=== PATIENT | female | born 1950 | race Caucasian/White ===

== ENCOUNTER 2017-08-07 07:21 | Emergency (ER) | payer OTHER ==
--- NOTE | 2017-08-07 07:47 | EDPHY ---
H & P Time Seen by Provider: 08/07/17 07:26 HPI/ROS: Chief complaint. Neck and back pain HPI. 67-year-old female here by EMS with back pain. Patient tells me that during the night she suddenly had neck and upper back pain that radiates to her right scapula and down her right arm. She noticed she was somewhat tachycardic. Her pain is worse with movement and trying to stand. [place] doing EMS training in the last couple days and feels she over did it. She has cervical stenosis. She had a spinal fusion L2-L5 1 year ago and has had some achiness this area for 1 month. However the pain in her neck and upper back pain since last night. It felt like basilar. No anterior chest discomfort or shortness of breath. No bowel or bladder symptoms did she has some residual paresthesias but no new weakness or paresthesias. No fever abdominal pain. She received fentanyl per EMS. She took tramadol and prednisone during night. ROS Constitutional. no fever/chills, no weakness Eyes. no problems with vision ENT. no sore throat, no nasal drainage Cardiovascular. no chest pain Respiratory. no shortness of breath, no cough Abdominal. no abdominal pain, no nausea/vomiting, no diarrhea . no problems urinating MS. Neck and upper right-sided back pain. Radiation down right arm Skin. no rash Lymph. no swollen glands Neuro. Could not stand or walk secondary to pain Past Medical/Surgical History: Medical history significant for hypertension, dental Bridgett, skull stenosis, hip replacement, IBS Social History: , nonsmoker, no alcohol Smoking Status: Former smoker Physical Exam: General Appearance: A well-developed female moderate distress vital signs are stable Eyes: Pupils equal and round no pallor or injection. ENT, Mouth: Mucous membranes are moist. Respiratory: There are no retractions, lungs are clear to auscultation. Cardiovascular: Regular rate and rhythm. Gastrointestinal: Abdomen is soft and nontender, no masses, bowel sounds normal. Neurological: Awake and alert, sensory and motor exams grossly normal. Speech is normal. Arms and legs appear normal. Reflexes are normal Skin: Warm and dry, no rashes. Musculoskeletal: Neck is supple but tender over the cervical spine and to the right scapular area. Extremities symmetrical, full range of motion. Psychiatric: Patient is oriented X 3, there is no agitation. Constitutional: Initial Vital Signs Temperature (C) 36.7 C 08/07/17 07:21 Heart Rate 71 08/07/17 07:21 Respiratory Rate 20 08/07/17 07:21 Blood Pressure 150/97 H 08/07/17 07:21 O2 Sat (%) 98 08/07/17 07:21 O2 Delivery Mode Room Air Allergies/Adverse Reactions: Sulfa (Sulfonamide Antibiotics) Allergy (Verified 08/07/17 07:35) Home Medications: Medication Instructions Recorded Lisinopril 08/07/17 Meloxicam 08/07/17 methylPREDNISolone [Medrol Dose 1 each PO AD #1 ea 08/07/17 Bernardo] traMADol 08/07/17 Medical Decision Making - Diagnostics EKG Interpretation: EKG interpreted by me shows normal sinus rhythm with normal interval axis. QRS is normal there is no significant ST elevation or depression. No arrhythmia. Rate 71 Imaging Results: Imaging Impressions Cervical Spine MRI 08/07/17 08:03 Impression: Altered level spondylosis superimposed upon a congenitally small cervical neural canal with multilevel central and foraminal stenosis described above. The worst central canal stenosis is at C5-C6. If there is concern for instability, then lateral cervical flexion and extension plain film x-rays might be considered. Results called to Dr. Giselle Grover. Chest X-Ray 08/07/17 08:03 Impression: Negative. Thoracic Spine MRI 08/07/17 08:03 Impression: Multilevel spondylosis with several levels of mild cord compression. There is bilateral T1-T2 severe foraminal stenosis. Results called and discussed with GISELLE GROVER, at 08/07/2017 10:25 Chest x-ray reviewed by me is negative. Cervical and thoracic MRI reviewed by me and discussed with Dr. Rhodes with the above findings CT angiogram chest negative for pulmonary embolus. Procedures: IV normal saline. Morphine for pain. Ativan for muscle relaxation ED Course/Re-evaluation: Patient has an elevated D-dimer. CT angiogram is ordered. IV normal saline 1 L given On re-evaluation patient's symptoms are much improved. She no longer has any radiculopathy. No weakness to either arm. I consulted and discussed case with Dr. Marcos Rehman, neurosurgery who reviewed the cervical and thoracic MRI. He will see her in the office on Wednesday. He agrees with Medrol Dosepak. The patient, her , and I discussed imaging and lab results. We discussed treatment plan including criteria for return importance of follow-up and further evaluation. She expresses understanding and agreement. Patient is counseled regarding the increased risk of spinal cord injury with minor trauma such as fall or motor vehicle accident. She expresses understanding Differential Diagnosis: This is likely cervical radiculopathy. I considered pulmonary embolus, acute coronary syndrome, cord compression - Data Points Laboratory Results: Laboratory Results 08/07/17 07:48 08/07/17 07:48 08/07/17 08/07/17 08/07/17 07:48 07:48 07:48 WBC 7.64 10^3/uL 10^3/uL (3.80-9.50) RBC 4.41 10^6/uL 10^6/uL (4.18-5.33) Hgb 13.8 g/dL g/dL (12.6-16.3) Hct 39.5 % % (38.0-47.0) MCV 89.6 fL fL (81.5-99.8) MCH 31.3 pg pg (27.9-34.1) MCHC 34.9 g/dL g/dL (32.4-36.7) RDW 13.5 % % (11.5-15.2) Plt Count 313 10^3/uL 10^3/uL (150-400) MPV 9.4 fL fL (8.7-11.7) Neut % (Auto) 63.5 % % (39.3-74.2) Lymph % (Auto) 28.1 % % (15.0-45.0) [place] % (Auto) 7.3 % % (4.5-13.0) Eos % (Auto) 0.8 % % (0.6-7.6) Baso % (Auto) 0.3 % % (0.3-1.7) Nucleat RBC Rel Count 0.0 % % (0.0-0.2) Absolute Neuts (auto) 4.85 10^3/uL 10^3/uL (1.70-6.50) Absolute Lymphs (auto) 2.15 10^3/uL 10^3/uL (1.00-3.00) Absolute Monos (auto) 0.56 10^3/uL 10^3/uL (0.30-0.80) Absolute Eos (auto) 0.06 10^3/uL 10^3/uL (0.03-0.40) Absolute Basos (auto) 0.02 10^3/uL 10^3/uL (0.02-0.10) Absolute Nucleated RBC 0.00 10^3/uL 10^3/uL (0-0.01) Immature Gran % 0.0 % % (0.0-1.1) Immature Gran # 0.00 10^3/uL 10^3/uL (0.00-0.10) D-Dimer 1.28 ug/mLFEU H ug/mLFEU (0.00-0.50) Sodium 141 mEq/L mEq/L (134-144) Potassium 4.1 mEq/L mEq/L (3.5-5.2) Chloride 107 mEq/L mEq/L (97-110) Carbon Dioxide 23 mEq/l mEq/l (22-31) Anion Gap 11 mEq/L mEq/L (8-16) BUN 28 mg/dL H mg/dL (7-23) Creatinine 1.1 mg/dL H mg/dL (0.6-1.0) Estimated GFR 49 Glucose 90 mg/dL mg/dL (70-100) Calcium 10.1 mg/dL mg/dL (8.5-10.4) Troponin I < 0.012 ng/mL ng/mL (0.000-0.034) Medications Given: Discontinued Medications Sodium Chloride (Ns) 1,000 mls @ 0 mls/hr IV EDNOW ONE; Wide Open PRN Reason: Protocol Stop: 08/07/17 08:03 Last Admin: 08/07/17 08:13 Dose: 1,000 mls Lorazepam (Ativan Injection) 1 mg IVP EDNOW ONE Stop: 08/07/17 08:05 Last Admin: 08/07/17 08:13 Dose: 1 mg Morphine Sulfate (Morphine) 6 mg IVP EDNOW ONE Stop: 08/07/17 08:05 Last Admin: 08/07/17 08:13 Dose: 6 mg Departure - Departure Disposition: Home, Routine, Self-Care Clinical Impression: Cervical radiculopathy Condition: Good Instructions: Cervical Radiculopathy (ED) Additional Instructions: Prednisone taper to help decrease inflammation in the spinal cord of your neck. Tramadol for pain. As we talked about falls or motor vehicle accident or minor trauma with [place] at increased risk for spinal cord injuries. Return for worsening symptoms. Follow up with Dr. Benavides, neurosurgery, on your return after [place] Referrals: Patient,NotPresent [Unknown] - As per Instructions Mervin Benavides MD [Medical Doctor] - 3-4 days, if not improved Prescriptions: methylPREDNISolone [Medrol Dose Bernardo] 1 each PO AD #1 ea
[2017-08-07] MEDS ORDERED: NS 1,000 ML IV ONE (08:02)
[2017-08-07] MEDS ORDERED: LORazepam 2 MG/ML INJ IVP ONE (08:04)
[2017-08-07 08:09] LABS: PLATELET COUNT 313 10^3/uL (150-400)
--- NOTE | 2017-08-07 08:15 | CPEKG ---
Heart Rate: 71 RR Interval: 845 P-R Interval: 168 QRSD Interval: 74 QT Interval: 404 QTC Interval: 439 P Barnhart: 58 QRS Barnhart: 38 T Wave Barnhart: 39 EKG Severity - NORMAL ECG - EKG Impression: SINUS RHYTHM Electronically Signed By: Parvez Grover 07-Aug-2017 15:23:46
[2017-08-07] MEDS ORDERED: IOPAMIDOL (ISOVUE 370) 100 ML BTL IV ONE (10:18)
[2017-08-07 10:20] VITALS: RESP 18
[2017-08-07 11:37] VITALS: BP 109/70; PULSE 77; TEMP 97.9; O2SAT 98
== END 2017-08-07 11:49 | disposition home or self-care (01) ==
LOC: EDUNIT#
DX: M54.12 Radiculopathy, cervical region (principal); E86.9 Volume depletion, unspecified; I10 Essential (primary) hypertension; Z87.891 Personal history of nicotine dependence
CPT/HCPCS: 71010; 71275; 72141; 72146; 93005; 96361; 96374; 96375; 99285; J2060; Q9967

== ENCOUNTER 2018-02-02 08:15 | Inpatient (IN) | payer OTHER ==
--- NOTE | 2018-02-02 07:16 | PDHPUP ---
History & Physical Update H&P update statement: This history and physical update is based on an assessment of the patient which was completed after admission or registration (within 24 hours), but prior to the surgery/procedure. H&P update: H&P reviewed & patient examined, no change in patient's condition since H&P completed
[~2018-02-02 08:15] MED LIST: ROPIVACAINE 0.2% 80 MG, EPINEPHrine 0.2 MG in SYRINGE 0 ML IU ONE; TRANEXAMIC ACID 3,000 MG in NS (SYRINGE) 50 ML IRR ONE; TRANEXAMIC ACID 3,000 MG/50 ML BAG IRR ONE
[2018-02-02] MEDS ORDERED: ACETAMINOPHEN 325 MG TAB PO ONE (09:39)
[2018-02-02] MEDS ORDERED: DEXAMETHASONE 4 MG/ML VIAL IVP ONE (09:39)
[2018-02-02] MEDS ORDERED: ceFAZolin 2 GM/DEXTROSE 100 ML IV ONE (09:39)
[2018-02-02] MEDS ORDERED: FAMOTIDINE 20 MG TAB PO ONE (09:39)
[2018-02-02] MEDS ORDERED: LR 1,000 ML IV ONE (09:40)
[2018-02-02] MEDS ORDERED: LIDOCAINE 1% 2 ML INJ ID PRN (09:40)
--- NOTE | 2018-02-02 10:52 | PDANEPAE ---
ANE History of Present Illness 67 year old with left hip arthritis ANE Past Medical History - Cardiovascular History Hx Hypertension: Yes Hx Arrhythmias: No Hx Chest Pain: No Hx Coronary Artery / Peripheral Vascular Disease: No Hx CHF / Valvular Disease: No Hx Palpitations: No - Pulmonary History Hx COPD: No Hx Asthma/Reactive Airway Disease: Yes Hx Recent Upper Respiratory Infection: No Hx Oxygen in Use at Home: No Hx Sleep Apnea: No Sleep Apnea Screening Result - Last Documented: Negative Pulmonary History Comment: SENSITIVE TO ENVIROMENTAL ALLERGENS - Neurologic History Hx Cerebrovascular Accident: No Hx Seizures: No Hx Dementia: No Neurologic History Comment: L hand numbness. - Endocrine History Hx Diabetes: No - Renal History Hx Renal Disorders: No Renal History Comment: Mild stress urinary incontinence. - Liver History Hx Hepatic Disorders: No - Neurological & Psychiatric Hx Hx Neurological and Psychiatric Disorders: Yes Neurological / Psychiatric History Comment: L pinky and ring finger R/T to cervical stenosis - Cancer History Hx Cancer: No - Congenital Disorder History Hx Congenital Disorders: No - GI History Hx Gastrointestinal Disorders: Yes Gastrointestinal History Comment: IBS,. Diverticuli per colonoscopy. - Other Health History Other Health History: Mild ringing both ears. upper bridge fixed - Chronic Pain History Chronic Pain: Yes (back pain, hip pain left knee) - Surgical History Prior Surgeries: 1994-L5/S1 discectomy. 2017LAT FUSION L2-5. POST FUSION L2- 5. 2014 R LUIS A ANE Review of Systems Review of systems is: negative Review of Systems: - Exercise capacity METS (RN): 6 METS ANE Patient History - Allergies Allergies/Adverse Reactions: Sulfa (Sulfonamide Antibiotics) Allergy (Verified 01/19/18 10:47) - Home Medications Home medications: home medication list seen and reviewed Home Medications: Lisinopril 08/07/17 [Last Taken 02/01/18 20:00] Meloxicam 08/07/17 [Last Taken 01/02/18] traMADol 08/07/17 [Last Taken 02/02/18 06:00] Colace 100 MG (*) 01/19/18 [Last Taken 02/01/18 20:00] Fiber 01/19/18 [Last Taken 01/19/18] Fish Oil 1000 mg (*) 01/19/18 [Last Taken 01/19/18] Tumeric 01/19/18 [Last Taken 01/19/18] - NPO status NPO Since - Liquids (Date): 02/02/18 NPO Since - Liquids (Time): 07:00 NPO Since - Solids (Date): 02/01/18 NPO Since - Solids (Time): 19:30 - Anes Hx Anes Hx: no prior problems - Smoking Hx Smoking Status: Former smoker - Alcohol Use Alcohol Use: None - Family Anes Hx Family Anes Hx: none Family Hx Anesthesia Complications: none ANE Labs/Vital Signs - Vital Signs Blood Pressure: 106/71 Heart Rate: 63 Respiratory Rate: 16 O2 Sat (%): 98 Height: 162.56 cm Weight: 55.338 kg ANE Anesthesia Plan Anesthesia Plan: spinal
[2018-02-02] MEDS ORDERED: MIDAZOLAM 2 MG/2 ML VIAL IVP ONE (10:54)
[2018-02-02] MEDS ORDERED: BUPIVACAINE 0.75% 10 ML SDV ONE (11:26)
[2018-02-02] MEDS ORDERED: BUPIVACAINE/DEXTROSE 7.5MG/ML 2 ML SPINAL AMP SP ONE (11:27)
[2018-02-02] MEDS ORDERED: PROPOFOL/EMULSION 500 MG/50 ML BOTTLE IV ONE (11:33)
[2018-02-02] MEDS ORDERED: TEMAZEPAM 15 MG CAP PO PRN (12:34)
[2018-02-02] MEDS ORDERED: traMADol 50 MG TAB PO PRN (12:34)
[2018-02-02] MEDS ORDERED: PROMETHAZINE HCL 25 MG SUPPR PR PRN (12:34)
[2018-02-02] MEDS ORDERED: POLYETHYLENE GLYCOL 3350 17 GM PKT PO PRN (12:34)
[2018-02-02] MEDS ORDERED: BISACODYL 10 MG SUPP PR PRN (12:34)
[2018-02-02] MEDS ORDERED: METOCLOPRAMIDE 10 MG/2 ML VIAL IVP PRN (12:34)
[2018-02-02] MEDS ORDERED: DIPHENOXYLATE/ATROPINE LOMOTIL 1 TAB PO PRN (12:34)
[2018-02-02] MEDS ORDERED: PROMETHAZINE HCL 25 MG/ML INJ IVP PRN ×2 (12:34→12:43)
[2018-02-02] MEDS ORDERED: ONDANSETRON DISINTEGRATING 4 MG TAB PO PRN (12:34)
[2018-02-02] MEDS ORDERED: diphenhydrAMINE 25 MG CAP PO PRN (12:34)
[2018-02-02] MEDS ORDERED: LACTULOSE 20 GM/30 ML UDCUP PO PRN (12:34)
[2018-02-02] MEDS ORDERED: ONDANSETRON 4 MG/2 ML VIAL IVP PRN ×2 (12:34→12:43)
[2018-02-02] MEDS ORDERED: MAGNESIUM HYDROXIDE 30 ML UDCUP PO PRN (12:34)
--- NOTE | 2018-02-02 12:34 | POSTOPPROG ---
Post Op Note Date of Operation: 02/02/18 Surgeon: Annita Burdick Commercial Underwriter: rashid burdick Anesthesiologist: dr. monaco Anesthesia: GET(General Endotracheal), Spinal Pre-op Diagnosis: left hip OA Post-op Diagnosis: same Indication: left hip pain Procedure: L LUIS A ant approach Findings: severe hip OA Inf/Abcess present in the surg proc area at time of surgery?: No EBL: 100-500
[2018-02-02] MEDS ORDERED: NALOXONE HCL 0.4 MG/ML INJ IVP PRN (12:43)
[2018-02-02] MEDS ORDERED: HYDROmorphONE/DILAUDID 1 MG/ML INJ ONE ×2 (12:45→13:09)
[2018-02-02] MEDS: HYDROmorphONE/DILAUDID 1 MG/ML INJ IVP PRN ×3 (12:47→13:12)
[2018-02-02] MEDS ORDERED: DIAZEPAM 5 MG/ML 1 ML SYR IVP PRN (12:50)
[2018-02-02] MEDS ORDERED: fentaNYL 100 MCG/2 ML INJ ONE ×3 (12:50→14:09)
[2018-02-02] MEDS: fentaNYL 100 MCG/2 ML INJ IVP PRN ×5 (12:51→14:11)
[2018-02-02] MEDS ORDERED: LR 1,000 ML IV SCH (13:00)
[2018-02-02] MEDS ORDERED: DIAZEPAM 5 MG/ML 1 ML SYR ONE (13:21)
--- NOTE | 2018-02-02 13:49 | PDMN ---
Medical Necessity Medical necessity: [facility] IP only surgery; cpt 15952 L LUIS A
[2018-02-02] MEDS: oxyCODONE IR 5 MG TAB PO PRN ×2 (15:40→20:01)
[2018-02-02] MEDS: CYCLOBENZAPRINE 10 MG TAB PO PRN (15:40)
[2018-02-02] MEDS: ACETAMINOPHEN 325 MG TAB PO SCH (18:29)
[2018-02-02] MEDS: FAMOTIDINE 20 MG TAB PO SCH (20:01)
[2018-02-02] MEDS: ceFAZolin 2 GM/DEXTROSE 100 ML IV SCH (20:01)
[2018-02-02] MEDS: SENNOSIDES/DOCUSATE SODIUM TAB PO SCH (20:02)
[2018-02-02] MEDS: ASPIRIN 81 MG CHEWABLE TAB PO SCH (20:04)
[2018-02-02] MEDS ORDERED: LISINOPRIL 10 MG TAB PO SCH (21:00)
[2018-02-03] MEDS: ACETAMINOPHEN 325 MG TAB PO SCH ×3 (00:23→12:05)
--- NOTE | 2018-02-03 04:32 | GOP ---
[f rep st] OPERATIVE REPORT DATE OF OPERATION: 02/02/2018 SURGEON: Laila Velasquez MD NEUROSURGEON: Laila Velasquez MD ELECTROENCEPHALOGRAPH TECHNOLOGIST: SUMMER Martinez PREOPERATIVE DIAGNOSIS: Left hip osteoarthritis. POSTOPERATIVE DIAGNOSIS: Left hip osteoarthritis. PROCEDURE PERFORMED: Left total hip replacement. FINDINGS: ESTIMATED BLOOD LOSS: 200 mL. INDICATIONS: The patient has progressively worsening arthritis of the hip which has failed medical m anagement. The patient understands the treatment options including continued non-operative care and has selected surgical intervention. The patient has decided to undergo total hip arthroplasty via th e direct anterior approach, understanding the risks of the procedure including, but not limited to, n eurovascular injury, infection, persistent pain, component wear and loosening, deep venous thrombosis , pulmonary embolism, limb length inequality, hip instability (including dislocation), and intra-oper ative fractures. DESCRIPTION OF PROCEDURE: After proper identification of the patient including verification and minnie ing the surgical site, the patient was brought to the operating room and placed in the supine positio n. All bony prominences were well padded. Anesthesia was induced without complication and intraveno us prophylactic antibiotics were administered prior to skin incision. The operative leg was placed in the Trumpf Arch table extension and the well leg in a Yellofin leg ho lder. The patient was prepped and draped in the usual sterile fashion. The C-arm was draped for int ra-operative fluoroscopy to check acetabular position, femoral component position including leg lengt h and femoral offset. Attention was then drawn to surgical exposure of the hip. An incision was made with a #10 Bard Marcelino r blade starting 3 cm lateral and 3 cm distal to the anterior superior iliac spine measuring 8-10 cm and coursing distally toward the greater trochanter. The skin and subcutaneous tissues were divided sharply down to the fascia tracey. The fascia tracey was incised in line with the skin incision exposing the underlying tensor fascia tracey muscle. The muscle was bluntly elevated from the fascia and the f irst extracapsular Cobra retractor was placed laterally at the junction of the superior femoral neck and greater trochanter. The lateral femoral circumflex vessels were identified, cauterized, and divi ded with the Aquamantys bipolar cautery. The deep investing fascia of the TFL was divided to allow p danielito mobilization of the muscle preventing damage during the retraction. The reflected head of the rectus femoris muscle was elevated off the anterior hip capsule and a medial Cobra retractor was plac ed just proximal to the lesser trochanter. The anterior capsulotomy was made sharply from the superolateral acetabulum to the saddle junction of the superior femoral neck and greater trochanter, then coursing inferomedial towards the lesser troc hanter. The retractors were then placed in the intracapsular position for femoral neck osteotomy. C orresponding to pre-operative templating, the osteotomy was made with the oscillating saw carefully p rotecting the greater trochanter and soft tissues. The femoral head was removed from the acetabulum with a corkscrew and confirmed to be severely arthritic with exposed bone, deformity and osteophytes. Similar findings were confirmed in the acetabulum. The Arch table extension was then placed in 40 degrees external rotation. Attention was then drawn to the acetabular preparation. After placement of the anterior and posterio r Cobra retractors outside the labrum and intracapsular, the circumferential labrum was removed sharp ly. The foveal contents were then removed and hemostasis obtained with cautery. The first reamer selected was sized using the removed femoral head. Reaming began with medialization and then commenced in 2 mm increments at 45 degrees of abduction and 15 degrees of anteversion using fluoroscopic navigation. Reaming ceased 1 mm less than the definitive acetabular component and atif esponded to the pre-operative templating. The final acetabular component was inserted using fluorosc opy to achieve proper orientation yielding excellent purchase and stability in the acetabulum. The f inal acetabular liner was then placed and its seating confirmed. Attention was then turned to the femur. The Arch table extension was placed in extension and adducti on, delivering the osteotomized femoral neck into the wound. A 2-pronged femoral elevator was placed at the calcar and another at the tip of the greater trochanter. The posterolateral capsule was rele ased with cautery allowing mobilization of the femur lateral and anterior for preparation. The exter nal rotators were visualized and preserved. A curette and rongeur were used to open the starting poi nt for broaching. Serial broaching started with the #0 broach and ended with the broach that exhibit ed excellent fit in the proximal femur. A change in pitch during mallet strikes was accompanied by t he inability to advance the broach any further. The trial reduction was performed and fluoroscopic n avigation was utilized to check limb length. Adjustments were made to equalize limb length according ly. After the final trials were accepted they were removed and the wound was copiously lavaged. The femo ral component was seated to the same depth as the final broach and the femoral head was impacted onto the clean trunnion. The hip was then reduced for the final time and once more fluoroscopy was used to check that limb length equality was achieved. The wound was irrigated and closed in layers, the fascia tracey with 2-0 Quill, the subcutaneous tissue with 2-0 Quill, and the skin with Dermabond. Sterile dressings were applied. Final sharps and spon ge counts were accurate. The patient was then transferred to a hospital bed and brought to the [facility] hospital room in stable condition. IMPLANTS: Accolade II size 4 at 127. Acetabular component, Trident II, 50 mm. Liner is a Trident X 3, 32 mm. Head is a Biolox Delta 32 mm, -4. /[id number]/MODL
[2018-02-03] MEDS: ceFAZolin 2 GM/DEXTROSE 100 ML IV SCH (04:36)
[2018-02-03] MEDS: oxyCODONE IR 5 MG TAB PO PRN ×3 (07:00→14:09)
[2018-02-03 08:02] VITALS: BP 104/58
--- NOTE | 2018-02-03 08:54 | SOAPPROG ---
SOAP Progress Note Assessment/Plan: Assessment: Patient is doing well POD 1 s/p L LUIS A Pain management: pain is well controlled on oral pain meds. VTE ppx: recommend aspirin 81 mg BID for 4 weeks, cont DEVAN and SCDs Anemia: level is expected initially postop. Asymptomatic. Continue to monitor D/c planning: d/c to home today pending release from PT Plan: 02/03/18 08:54 Subjective: patient is doing well, denies SOB, chest pain and N/V. Objective: Vital Signs Temp Pulse Resp BP Pulse Ox 37.0 C 87 15 104/58 L 98 02/03/18 08:01 02/03/18 08:01 02/03/18 08:01 02/03/18 08:01 02/03/18 08:01 Laboratory Results 02/03/18 04:55 02/03/18 04:55 02/02/18 02/03/18 02/04/18 05:59 05:59 05:59 Intake Total 2300 Output Total 2770 Balance -470 LLE; incision dressing is clean and dry, NVI, +pf/df ICD10 Worksheet Patient Problems: Problems Problem Status Onset Primary localized osteoarthritis of left hip Acute Primary localized osteoarthritis of right hip Acute
[2018-02-03] MEDS: SENNOSIDES/DOCUSATE SODIUM TAB PO SCH (09:09)
[2018-02-03] MEDS: ASPIRIN 81 MG CHEWABLE TAB PO SCH (09:10)
[2018-02-03] MEDS: FAMOTIDINE 20 MG TAB PO SCH (09:10)
[2018-02-03] MEDS: CYCLOBENZAPRINE 10 MG TAB PO PRN (11:42)
--- NOTE | 2018-02-03 14:53 | POSTANESTH ---
Post Anesthetic Evaluation Cardiovascular Status: Normal, Stable Respiratory Status: Normal, Stable Level of Consciousness/Mental Status: Can Participate in Eval Pain Control: Adequate, Prn Tx Ordered Nausea/Vomiting Control: Adequate, Prn Tx Ordered Complications Possibly Related to Anesthesia: None Noted
--- NOTE | 2018-02-03 16:51 | GDS ---
[f rep st] DISCHARGE SUMMARY ADMISSION DIAGNOSIS: Left hip osteoarthritis. DISCHARGE DIAGNOSIS: Left hip osteoarthritis. PROCEDURE: Left total hip arthroplasty. VTE PROPHYLAXIS: Recommend baby aspirin 81 mg twice daily for 4 weeks. BRIEF DESCRIPTION OF HOSPITAL STAY: Patient was admitted for an elective joint arthroplasty. The pa emmanuel tolerated the procedure well and has passed physical therapy. The patient was given appropriat e antibiotic prophylaxis and venous thromboembolism prophylaxis. The patient's pain was well control led on oral pain medication, patient was holding down food, and had urinated. Decision was made to d ischarge the patient. The patient was given post-operative prescriptions pre-operatively. PLAN: Follow up as scheduled with Dr. Velasquez's office February 24 at 9:30. /[id number]/MODL
== END 2018-02-03 15:01 | disposition home or self-care (01) | DRG 470 ==
LOC: F3N 08:51
PROVIDERS: ADMIT Orthopaedic Surgery; ATTEND Orthopaedic Surgery
PROC: 0SRB04A Replacement of Left Hip Joint with Ceramic on Polyethylene Synthetic Substitute, Uncemented, Open Approach (ICD-10-PCS; principal; 2018-02-02 11:15)
DX: M16.12 Unilateral primary osteoarthritis, left hip (principal); I10 Essential (primary) hypertension; Z98.1 Arthrodesis status; Z87.891 Personal history of nicotine dependence; Z96.641 Presence of right artificial hip joint
CPT/HCPCS: 97116-GP; 97161-GP; G8978-GP-CJ; G8979-GP-CI; G8980-GP-CI; J0171; J0690; J1100; J1170; J2250; J2704; J2795; J3010; J3360